=== PATIENT | female | born 1950 | race American Indian/Alaskan Native ===

== ENCOUNTER 2016-12-05 17:37 | Outpatient (CLI) | payer MEDICARE | END 2016-12-05 17:38 | disposition home or self-care (01) | LOC: LABHHL 17:37 | PROVIDERS: ATTEND Internal Medicine Gastroenterology | DX: Z12.11 Encounter for screening for malignant neoplasm of colon (principal); C16.9 Malignant neoplasm of stomach, unspecified; K21.9 Gastro-esophageal reflux disease without esophagitis; Z85.038 Personal history of other malignant neoplasm of large intestine | CPT/HCPCS: 88305; 88342 ==